=== PATIENT | male | born 1945 | race Caucasian/White ===

== ENCOUNTER → 2017-05-10 | Outpatient (CLI) | payer MEDICARE ==
[~2017-05-10] MED LIST: ASPIRIN81 M2 PO; BENAZEPRIL HCL5 M2 PO; CALCIUM 500 +1 EAC3 PO; CLOBETASOL E 0.60 GM TOP; DICYCLOMINE HCL20 MG PO; FLONASE ALLERG9.9 ML; FOSAMAX70 MG PO; HYDROCODON-ACE1 EAC7 PO; HYDROCODON-ACE1 EAC9 PO; MULTI VITAMIN1 EACH PO; VITAMIN D1000 UNI1 PO; ZOCOR20 MG PO
--- NOTE | ~2017-05-10 | CR63 ---
[facility] A Service of [facility] & [facility] RADIOLOGY TEXT RESULTS PATIENT: DARLING YAN LOCATION: [facility] : 45 UNIT #: [id number] AGE: [address]: Rajiv Vega MD SEX: M ORDER DR: [id number] [facility] [address] [facility] [place] [facility]. [place], [place] [address] [id number] O MR#: [id number] Acc #: [id number] NAME: DARLING YAN : 1945 SEX: M STUDY DATE/TIME: 05/10/2017 11:38 UNIT: [facility] ROOM: STUDY DESCRIPTION: CR Chest 2 View Attending Physician: Rajiv Vega M.D. Referring Physician: Rajiv Vega M.D. Ordering Physician: Rajiv Vega M.D. Primary Care Physician: Matt Dsouza M.D. MEDICAL IMAGING REPORT This report is preliminary unless electronic signature is present EXAM PA and lateral chest INDICATION Preop for partial nephrectomy. No comparisons. FINDINGS There is atelectasis or infiltrate within the left lung base. Mild interstitial opacities bilaterally. Heart size is normal. Prior sternotomy. Chronic-appearing mid thoracic spine compression deformity. Prior valve replacement. IMPRESSION 1. Mild bilateral interstitial opacities. 2. Atelectasis or infiltrate within the left lung base. Dictated by... Wilfrid Maldonado M.D. THIS IS AN ELECTRONICALLY VERIFIED REPORT Wilfrid Maldonado M.D. at 05/11/2017 7:34 AM KYRA/juancarlos TD: 05/11/2017 04:31 JOB #: [id number] MEDICAL IMAGING REPORT Page 1 of 1 COPY
[2017-05-10 12:27] LABS: BUN/CREATININE RATIO 21.42; CALCIUM SERUM 9.8 mg/dL (8.4-10.2); CREATININE SERUM 0.7 mg/dL (0.6-1.4); POTASSIUM 4.3 mmol/L (3.5-5.1)
== END | disposition home or self-care (01) ==
LOC: CAMB 10:00
PROVIDERS: Urology
DX: Z01.818 Encounter for other preprocedural examination (principal); D41.02 Neoplasm of uncertain behavior of left kidney; R91.8 Other nonspecific abnormal finding of lung field
CPT/HCPCS: 36415; 71020; 80048

== ENCOUNTER 2017-05-20 07:55 | Inpatient (IN) | payer MEDICARE ==
[~2017-05-20] VITALS: Ht 167.6 cm; Wt 75.0 kg
--- NOTE | ~2017-05-20 | CO ---
Unit #: [id number] #: [id number] Patient: DARLING YAN [id number] [address] [place], [place] [address] [id number] MR#: [id number] NAME: DARLING YAN. ROOM: 474 Age: 71 Sex: M Admission Date: 05/20/2017 : 1945 Attending Physician: Rajiv Vega M.D. Primary Care Physician: Matt Dsouza M.D. Consultation Date: 05/20/2017 CONSULTATION REPORT HISTORY OF PRESENT ILLNESS Mr. Yan is a 71-year-old white male, who has been followed by Dr. Eitan Stovall. We were asked to see him for preoperative clearance. Dr. Stovall had already given preoperative clearance on 05/13/2017. Apparently, in 12/2016, he awaken with back pain and went to the emergency room. He was found to have a compression fracture and also possible left lower lobe infiltrate. The pain gradually decreased. He was seen in the emergency department in 02/2017 for recurrence of back pain with a second fracture. Apparently, an x-ray in 02/2017 showed a left lower lobe infiltrate. He took doxycycline for 10 days and improved. Another chest x-ray was done revealed residual left lower lobe density. He was treated with another week of antibiotics. He has had a chest CT scan done. Most recently, a CT scan done on 05/05/[address] Stovall. The radiologist read it as showing some increased interstitial markings in the bases. The patient was treated with Levaquin and completed a 1-week course. He currently has been afebrile. He is not coughing up any sputum. He is not particularly short of breath. He denies any chest pain. He has had no dysuria or hematuria. No diarrhea. No sinus congestion. No swollen joints. He is a never smoker. PAST MEDICAL HISTORY Significant for coronary artery disease, dyslipidemia, hypertension, osteoporosis, valvular heart disease. FAMILY HISTORY Significant for diabetes, heart disease, hypertension, CVA. SOCIAL HISTORY Single. Never smoker. Occasional alcohol. Lives with sister. 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 IMMUNIZATION He had flu shot in 2016, pneumonia vaccination in 2016. HOME MEDICATIONS Listed are aspirin, benazepril, hydrochlorothiazide, calcium, vitamin D, clobetasol cream, dicyclomine, Flonase, Bailey nasal spray, simvastatin, and multivitamin. REVIEW OF SYSTEMS CONSTITUTIONAL: No fevers or chills. HEENT: No rhinorrhea or nasal congestion. PULMONARY: No significant sputum production. CARDIAC: No chest pain. Unit #: [id number] #: [id number] Patient: DARLING YAN GI: No nausea or vomiting. : No hematuria or dysuria. ENDOCRINE: No polyuria or polydipsia. HEMATOLOGIC: No easy bruising or bleeding. SKIN: No rash. MUSCULOSKELETAL: Does have some back pain, osteoporosis. No swollen joints. NEUROLOGIC: No unilateral weakness or numbness. PHYSICAL EXAMINATION VITAL SIGNS: Blood pressure 104/60, pulse 93, respiratory rate 13, afebrile 97.5. HEENT: Normocephalic and atraumatic. Pupils are equal, round, and reactive. Sclerae nonicteric. Nasal passages patent. Posterior pharynx clear. Mucous membranes moist. NECK: Supple. Trachea midline. LUNGS: Clear to auscultation and percussion. CARDIAC: Regular rate and rhythm. Could not appreciate murmur, rub, or gallop. ABDOMEN: Nontender. Bowel sounds present. No hepatosplenomegaly. EXTREMITIES: Without clubbing, cyanosis, or edema. NEUROLOGIC: Awake, alert, and oriented X3. Cranial nerves intact. Muscle strength symmetric bilaterally. SKIN: Warm and dry. LABORATORY STUDIES LABORATORY RESULTS: Previous spirometry in the office revealed an FVC of 2.34 L, 65% of predicted. FEV1 2.05 L, 79% of predicted consistent with some mild restriction possibly from some scoliosis. IMAGING STUDIES: Chest x-rays reviewed, some increased markings in the lower lungs quickly on the left side, small lung volumes. Status post coronary artery bypass grafting, aortic valve replacement. IMPRESSION 1. Abnormal chest x-ray and apparently abnormal chest CT scan. No evidence of active infection at this time. 2. Renal mass. Scheduled for nephrectomy. 3. Thyroid nodule. 4. Hyperlipidemia. 5. Aortic valve replacement. 6. Coronary artery disease, status post coronary artery bypass grafting. PLAN The patient does not appear to have active infection. I would agree with him being cleared for required surgery. He will need follow up of the x-ray abnormality, may need tissue diagnosis if it persist. We will defer to Dr. Stovall to review previous x-rays and CT scans that were done at [facility]. We have been unable to obtain those studies in a timely fashion prior to surgery. Dictated by... Agapito Joy M.D. KEREN/abdi TD: 05/21/2017 15:10 JOB #: [id number] Unit #: [id number] #: [id number] Patient: DARLING YAN CONSULTATION REPORT Page 1 of 1 X Agapito Joy MD CONSULTATION REPORT
--- NOTE | ~2017-05-20 | OR ---
Unit #: [id number] #: [id number] Patient: DARLING YAN [id number] [address] [place], [place] [address] [id number] I MR#: [id number] NAME: DARLING YAN. ROOM: 474 Date of Procedure: 05/20/2017 Admission Date: 05/20/2017 Surgeon: Rajiv Vega M.D. : 1945 Attending Physician: Rajiv Vega M.D. Primary Care Physician: Matt Dsouza M.D. OPERATIVE REPORT PREOPERATIVE DIAGNOSIS Left renal mass. POSTOPERATIVE DIAGNOSIS Left renal mass. PROCEDURE PERFORMED Left open partial nephrectomy. PROBATION AND PAROLE OFFICER Sami Prasad M.D. ANESTHESIA General with local supplementation. INDICATIONS FOR PROCEDURE This 71-year-old man has a 3 cm enhancing mass involving the lower pole of the left kidney and he presents for elective removal today. Note that, he had prepared for today correctly except low-dose aspirin was only held five days ago and he understands this does increase the risk of bleeding somewhat. Furthermore, he had been treated for pneumonia and was reassessed after initial pulmonary clearance delaying surgery today as he was noted to have a temperature of 100.5 degrees, but chest x-ray was deemed satisfactory and there was no abnormality of laboratories or physical examination today, and he feels well. DESCRIPTION OF PROCEDURE The patient was given preoperative vancomycin and gentamicin in accordance with Cardiology recommendations. He was given satisfactory general anesthesia, supine and Goel catheter placed, and he was positioned in full left flank. He was taped to the table at the hips and chest with all appropriate padding of extremities. I had palpated the tip of the twelfth rib before prep and drape. This was no longer clearly palpable and what seemed to be the eleventh rib, but may have been the twelfth was selected for the level of incision, which was carried forward obliquely. A small peritoneotomy was closed. This allowed clarification of the very limited Gerota fat very laterally. The Gerota's was opened longitudinally. Manual Soumya retractor usage and tedious dissection of fairly adherent Gerota's was performed around the entire kidney, often with right angle and cautery until sufficient mobilization of the kidney. The adrenal gland was without incident. The vessels were exposed. The vein was encircled with a vessel loop. Two branches of the renal artery were Unit #: [id number] #: [id number] Patient: DARLING YAN encircled. The trunk was deep and known to be very short and calcified. So, I elected to clamp the two main branches instead. The ureter was identified and preserved. With the kidney fully mobilized recognizing the cyst next to the tumor, I then reviewed retains with staff as 20 mg of Lasix and 12.5 g of mannitol were allowed to circulate for 5 minutes. During this time, the cyst was opened and decorticated to improve approach to the tumor, which was then demarcated circumferentially with cautery at 60. The 5 minutes of circulation time was reached and the two arteries and vein were clamped and ice slush applied. After 10 minutes of cooling, the tumor was sharply excised with scissors and much came away with blunt dissection. It was fairly endophytic and there were number of bleeding points in the base, but no evidence of collecting system entry. It should be noted that the patient's tissues did seem to ooze more than expected throughout the dissection. There was a significant bleeding from the defect also, which was managed initially by oversewing two obvious bleeding points with 3-0 Monocryl followed by use of the argon beam circumferentially on the parenchyma and then several additional Monocryl sutures. The defect was then closed by placing the first #1 Vicryl renorrhaphy stitch with the sliding Hem-o-Rafal technique over a specimen of fat retrieved earlier. The remainder of six renorrhaphy sutures were placed. These were secured initially. Then, the clamps were released at a total clamp time of 31 minutes including the 10 minutes of cooling. There was no bleeding from the kidney after release of the clamps. FloSeal was applied at the surface of the defect and also in the hilar and adrenal area, although there were no bleeding points identified. The kidney had pinked up nicely. A 15 round Jb-Kumar drain was placed and secured to the skin. The Gerota's was approximated with chromic sutures. The wound was closed in three layers with a running #1 Vicryl after first removing a little over an inch of the tip of the rib which had broken after placement of the Bookwalter retractor after the initial exposure and before the ice cooling and clamping. The subcutaneous tissues were irrigated. The skin was closed with metallic clips and 30 mL of 0.5% Marcaine injected around the wound. The patient tolerated the procedure well and was transferred to the recovery room in satisfactory condition. Estimated blood loss 600 mL. Dictated by... Ashkan Angulo/abdi TD: 05/21/2017 19:12 JOB #: [id number] OPERATIVE REPORT Page 1 of 1 X Rajiv Vega MD PROCEDURE OPERATIVE NOTE
--- NOTE | ~2017-05-20 | CR63 ---
[facility] A Service of [facility] & [facility] RADIOLOGY TEXT RESULTS PATIENT: DARLING YAN LOCATION: [place] [address] : [birth year] UNIT #: [id number] AGE: [address]: Rajiv Vega MD SEX: M ORDER DR: [id number] [facility] [address] [facility]. [place], [place] [address] [id number] O MR#: [id number] #: [id number] NAME: DARLING YAN : 1945 SEX: M STUDY DATE/TIME: 05/20/2017 9:07 UNIT: [facility] ROOM: STUDY DESCRIPTION: CR Chest 2 View Attending Physician: Rajiv Vega M.D. Ordering Physician: Rajiv Vega M.D. Primary Care Physician: Matt Dsouza M.D. MEDICAL IMAGING REPORT This report is preliminary unless electronic signature is present EXAM Two views chest 05/20/2017 HISTORY Follow up pneumonia. Nephrectomy left. Open-heart 2014. Preop. Short of air. Cough today. Left kidney. FINDINGS AP radiograph of the chest is presented. Comparison 05/10/2017. Status post median sternotomy, CABG and what appears to be aortic valve replacement. Heart is normal in size. Lung volumes are moderate. Patchy and linear densities at the left lung base persist. Appearance may reflect in part atelectasis. Left basilar pneumonitis/pneumonia is a consideration. There is no dense airspace disease, pleural effusion or pneumothorax and no suspicious nodule. Followup to radiographic resolution is recommended. The visualized upper abdomen is unremarkable. Dictated by... Cristian Ku M.D. THIS IS AN ELECTRONICALLY VERIFIED REPORT Cristian uK M.D. at 05/24/2017 8:01 AM RIVERA/charley TD: 05/20/2017 10:21 JOB #: [id number] MEDICAL IMAGING REPORT Page 1 of 1 COPY
[~2017-05-20 07:55] MED LIST changes: -HYDROCODON-ACE1 EAC9 PO
[2017-05-20 08:36] LABS: HEMOGLOBIN 15.4 gm/dL (13.0-16.0); MEAN CELL VOLUME 87.8 FL (83-96); MEAN CORPUSCULAR HEMOGLOBIN 30.1 PG (28-34); MEAN CORPUSCULAR HGB CONC 34.2 g/dL (30-36); MEAN PLATELET VOLUME 7.4 FL (6.5-11.5); RED BLOOD COUNT 5.12 X10e (3.90-5.60); RED CELL DISTRIBUTION WIDTH 12.8 % (11.0-15.5); WHITE BLOOD COUNT 8.9 X10e3 (4.0-10.5)
[2017-05-21 04:13] LABS: HEMATOCRIT 34.4 % (38.0-50.0); MEAN CELL VOLUME 87.7 FL (83-96); MEAN CORPUSCULAR HEMOGLOBIN 29.6 PG (28-34); MEAN CORPUSCULAR HGB CONC 33.7 g/dL (30-36); MEAN PLATELET VOLUME 7.9 FL (6.5-11.5); RED BLOOD COUNT 3.92 X10e (3.90-5.60); RED CELL DISTRIBUTION WIDTH 12.9 % (11.0-15.5)
[2017-05-21 04:14] LABS: HEMOGLOBIN 11.6 gm/dL (13.0-16.0); WHITE BLOOD COUNT 14.4 X10e3 (4.0-10.5)
[2017-05-21 04:43] LABS: BUN/CREATININE RATIO 19.09; CALCIUM SERUM 8.6 mg/dL (8.4-10.2); CREATININE SERUM 1.1 mg/dL (0.6-1.4); GLOM FILT RATE Estimated 67.2 mL/min (>60); POTASSIUM 3.9 mmol/L (3.5-5.1)
[2017-05-22 03:14] LABS: HEMATOCRIT 33.7 % (38.0-50.0); HEMOGLOBIN 11.4 gm/dL (13.0-16.0); MEAN CELL VOLUME 87.3 FL (83-96); MEAN CORPUSCULAR HEMOGLOBIN 29.5 PG (28-34); MEAN CORPUSCULAR HGB CONC 33.8 g/dL (30-36); MEAN PLATELET VOLUME 8.1 FL (6.5-11.5); RED BLOOD COUNT 3.86 X10e (3.90-5.60); RED CELL DISTRIBUTION WIDTH 12.9 % (11.0-15.5); WHITE BLOOD COUNT 15.8 X10e3 (4.0-10.5)
[2017-05-22 03:37] LABS: CALCIUM SERUM 9.2 mg/dL (8.4-10.2); GLOM FILT RATE Estimated 75.4 mL/min (>60); POTASSIUM 3.7 mmol/L (3.5-5.1)
[2017-05-23 02:56] LABS: HEMATOCRIT 30.6 % (38.0-50.0); HEMOGLOBIN 10.5 gm/dL (13.0-16.0); MEAN CELL VOLUME 87.8 FL (83-96); MEAN CORPUSCULAR HGB CONC 34.1 g/dL (30-36); MEAN PLATELET VOLUME 7.7 FL (6.5-11.5); RED BLOOD COUNT 3.49 X10e (3.90-5.60); RED CELL DISTRIBUTION WIDTH 12.7 % (11.0-15.5); WHITE BLOOD COUNT 9.3 X10e3 (4.0-10.5)
[2017-05-23 03:20] LABS: BUN/CREATININE RATIO 27.5; CALCIUM SERUM 8.9 mg/dL (8.4-10.2); CREATININE SERUM 0.8 mg/dL (0.6-1.4); GLOM FILT RATE Estimated 89.9 mL/min (>60)
[2017-05-23] MEDS ORDERED: HYDROCODON-ACE1 EAC9 PO (14:58)
== END 2017-05-23 16:10 | disposition home or self-care (01) | DRG 658 ==
LOC: CSUR 07:55 → CEDOF 14:50 → CSUR 17:41 → C4C 17:47 → CEDOF 17:47 → C4C 05-23 16:10
PROVIDERS: Urology
PROC: 0TB10ZZ Excision of Left Kidney, Open Approach (ICD-10-PCS; principal; 2017-05-20 10:00)
DX: C64.2 Malignant neoplasm of left kidney, except renal pelvis (principal); I10 Essential (primary) hypertension; Z88.0 Allergy status to penicillin; E78.5 Hyperlipidemia, unspecified; I25.10 Atherosclerotic heart disease of native coronary artery without angina pectoris; M81.0 Age-related osteoporosis without current pathological fracture; Z95.1 Presence of aortocoronary bypass graft; Z95.2 Presence of prosthetic heart valve; Z79.82 Long term (current) use of aspirin; E04.1 Nontoxic single thyroid nodule; M19.90 Unspecified osteoarthritis, unspecified site
CPT/HCPCS: 71020; 80048; 85027; 86850; 86900; 86901; 88307; 94760; 94761; J1170; J1580; J1720; J1885; J1940; J2150; J2250; J2405; J2710; J3010; J3370